=== PATIENT | male | born 1955 | race Caucasian/White ===

== ENCOUNTER 2017-02-22 01:34 | Emergency (ER) | payer OTHER ==
[~2017-02-22] VITALS: Ht 172.7 cm; Wt 117.9 kg
[2017-02-22 01:36] VITALS: BP 123/62
[2017-02-22] MEDS ORDERED: CITRATE OF MAG296 ML PO (02:11)
[2017-02-22] MEDS ORDERED: COLACE100 MG PO (02:11)
== END 2017-02-22 02:37 | disposition home or self-care (01) ==
LOC: EDBD 01:34 → ER 01:34
DX: K59.00 Constipation, unspecified (principal); Z98.890 Other specified postprocedural states; E11.22 Type 2 diabetes mellitus with diabetic chronic kidney disease; N18.3 Chronic kidney disease, stage 3 (moderate); I10 Essential (primary) hypertension; M10.9 Gout, unspecified